=== PATIENT | female | born 1925 | race Caucasian/White ===

== ENCOUNTER 2017-03-23 18:46 | Observation (INO) | payer OTHER ==
[~2017-03-23] VITALS: Ht 162.6 cm; Wt 46.0 kg
[~2017-03-23 18:46] MED LIST: AMLO1POW3 PO; ASPI81TA3 PO; METO-429 PO; OMEP40CA6 PO; PRAV40TA76 PO
[2017-03-23] MEDS ORDERED: ASPIRIN 81 MG TAB PO STA (19:22)
[2017-03-23 19:30] VITALS: TEMP 98
[2017-03-23 20:00] LABS: BASOPHIL # 0.1 10^3/ul (0.0-0.1); BASOPHILS % 0.7 % (0.0-2.0); EOSINOPHILS # 0.1 10^3/ul (0.0-0.5); EOSINOPHILS % 1.6 % (0.0-7.0); HEMATOCRIT 38.8 % (37.0-47.0); HEMOGLOBIN 12.8 g/dl (12.0-16.0); LYMPHOCYTES # 2.5 10^3/ul (0.8-2.9); LYMPHOCYTES % 33.4 % (15.0-51.0); MEAN CORPUSCULAR HEMOGLOBIN 27.5 pg (29.0-33.0); MEAN CORPUSCULAR VOLUME 83.3 fl (82.0-101.0); MEAN PLATELET VOLUME 10.4 fl (7.4-10.4); MONOCYTE # 0.5 10^3/ul (0.3-0.9); MONOCYTES % 6.9 % (0.0-11.0); NEUTROPHIL # 4.2 10^3/ul (1.6-7.5); PLATELET COUNT 246 10^3/UL (140-415); RED BLOOD COUNT 4.66 10^6/ul (4.20-5.40); RED CELL DISTRIBUTION WIDTH 14.2 % (11.5-14.5); WHITE BLOOD COUNT 7.4 10^3/ul (4.8-10.8)
[2017-03-23 20:15] LABS: INR 1.1; PROTIME 14.2 Sec (12.2-14.2); PT RATIO 1.1
[2017-03-23 20:16] LABS: PARTIAL THROMBOPLASTIN TIME 30.7 Sec (25.0-35.0)
[2017-03-23 20:18] LABS: ANION GAP 15 (8-16); BLOOD UREA NITROGEN 28 mg/dl (7-20); CALCIUM 9.7 mg/dl (8.4-10.2); CARBON DIOXIDE 26 mmol/L (21-31); CHLORIDE 104 mmol/L (97-110); CREATININE 1.03 mg/dl (0.44-1.00); GLUCOSE 98 mg/dl (70-220); SODIUM 141 mmol/L (135-144)
[2017-03-23 20:31] LABS: TROPONIN-I < 0.012 ng/ml (0.00-0.12)
[2017-03-23] MEDS ORDERED: ENALAPRILAT 1.25 MG INJ IV ONE (21:00)
[2017-03-23] MEDS ORDERED: LABETALOL HCL 20MG INJ IV ONE (21:00)
--- NOTE | 2017-03-23 21:14 | RADRPT ---
PROCEDURE: XR Chest. CLINICAL INDICATION: Chest Pain. TECHNIQUE: Frontal chest x-ray was obtained. COMPARISON: Chest x-ray February 05, 2013 FINDINGS: Heart is not enlarged. Mediastinum is not widened. No hilar masses seen. Lungs are clear of any infi ltrates. There is no effusion or pneumothorax. IMPRESSION: No evidence for active cardiopulmonary disease. .Jose Hilliard MD, MD Date Time Electronically viewed and signed by .Jose Hilliard MD, on 03/23/2017 21:14 .A/
[2017-03-23] MEDS ORDERED: SOD CHLORIDE 0.9% 1,000 ML IV SCH (22:00)
[2017-03-23] MEDS ORDERED: ONDANSETRON 4 MG TAB PO PRN (22:00)
[2017-03-23] MEDS ORDERED: ACETAMINOPHEN 325 MG TAB PO PRN ×2 (22:00)
[2017-03-23] MEDS ORDERED: METOPROLOL 50 MG TAB PO ONE (22:00)
[2017-03-23] MEDS ORDERED: NITROGLYCERIN (SL) 0.4 MG TAB SL PRN (22:00)
[2017-03-23] MEDS ORDERED: ONDANSETRON 4 MG INJ IV PRN (22:00)
[2017-03-23] MEDS ORDERED: IBUP800T25 PO (23:15)
[2017-03-23 23:44] VITALS: Ht 162.6 cm; Wt 46.0 kg
[2017-03-24] VITALS (11 sets, daily range): BP systolic 109–197; BP diastolic 58–85; PULSE 58–70; RESP 17–18
--- NOTE | 2017-03-24 00:17 | ERD ---
ER Documentation Chief Complaint Chief Complaint Chest pain, SOB, Dizziness x 3 days HPI 89-year-old female presenting with chest pain. She has a history of hypertension. She states that she has had intermittent shortness of breath and chest pain for several months, however today her chest pain was much more severe , radiating to her left arm associated with shortness of breath and dizziness. She has been feeling worse over the past 3 days. She denies any nausea or vomiting. No fever, chills, abdominal pain, cough, dysuria. No focal weakness or numbness. ROS All systems reviewed and are negative except as per history of present illness. Medications Home Meds Reported Medications Ibuprofen* (Ibuprofen*) 800 Mg Tab, 800 MG PO Q6H Y for PAIN, TAB 03/23/17 Metoprolol Tartrate (LOPRESSOR) 50 Mg Tab, MG PO BID 02/05/13 Discontinued Reported Medications Pravastatin Sodium* (Pravastatin Sodium*) 40 Mg Tablet, 40 MG PO DAILY 02/05/13 Aspirin (Aspirin) 81 Mg Chew, 81 MG PO DAILY 02/05/13 Omeprazole* (Omeprazole*) 40 Mg Capsule.dr, 20 MG PO DAILY 02/05/13 Amlodipine Besylate (AMLODIPINE BESYLATE) 1 Gm Powder, 2.5 MG PO DAILY 02/05/13 Allergies Allergies: Coded Allergies: No Known Drug Allergies (Unverified Allergy, Unknown, 03/23/17) PMhx/Soc Medical and Surgical Hx: pt denies Surgical Hx History of Surgery: No Anesthesia Reaction: No Hx Neurological Disorder: No Hx Respiratory Disorders: No Hx Cardiac Disorders: Yes (HTN) Hx Psychiatric Problems: No Hx Miscellaneous Medical Probl: No Hx Alcohol Use: No Hx Substance Use: No Hx Tobacco Use: No Smoking Status: Never smoker FmHx Family History: No diabetes Physical Exam Vitals Vital Signs Date Time Temp Pulse Resp B/P Pulse Ox O2 Delivery O2 Flow Rate FiO2 03/23/17 21:30 67 16 161/67 97 Room Air 03/23/17 20:30 67 13 199/75 99 Room Air 03/23/17 19:30 98.0 73 16 199/75 99 Room Air 03/23/17 18:55 98.0 66 20 228/92 98 Physical Exam Const: Well-appearing, no apparent distress. Head: Atraumatic Eyes: Normal Conjunctiva ENT: Normal External Ears, Nose and Mouth. Neck: Full range of motion..~ No meningismus. Resp: Clear to auscultation bilaterally Cardio: Regular rate and rhythm, no murmurs. 2+ distal pulses in all 4 extremities Abd: Soft, non tender, non distended. Normal bowel sounds Skin: No petechiae or rashes Back: No midline or flank tenderness Ext: No cyanosis, or edema Neur: Awake and alert, oriented 3, cranial nerves intact, strength and sensations intact in all 4 extremities. Normal gait. Psych: Normal Mood and Affect Result Diagram: 03/23/17193603/23/171936 Results 24 hrs Laboratory Tests Test 03/23/17 19:37 White Blood Count 7.410^3/ul Red Blood Count 4.6610^6/ul Hemoglobin 12.8g/dl Hematocrit 38.8% Mean Corpuscular Volume 83.3fl Mean Corpuscular Hemoglobin 27.5pg Mean Corpuscular Hemoglobin Concent 33.0g/dl Red Cell Distribution Width 14.2% Platelet Count 37018^3/UL Mean Platelet Volume 10.4fl Neutrophils % 57.0% Lymphocytes % 33.4% Monocytes % 6.9% Eosinophils % 1.6% Basophils % 0.7% Nucleated Red Blood Cells % 0.0/100WBC Neutrophils # 4.210^3/ul Lymphocytes # 2.510^3/ul Monocytes # 0.510^3/ul Eosinophils # 0.110^3/ul Basophils # 0.110^3/ul Nucleated Red Blood Cells # 0.010^3/ul Prothrombin Time 14.2Sec Prothrombin Time Ratio 1.1 INR International Normalized Ratio 1.10 Activated Partial Thromboplast Time 30.7Sec Sodium Level 141mmol/L Potassium Level 4.0mmol/L Chloride Level 104mmol/L Carbon Dioxide Level 26mmol/L Anion Gap 15 Blood Urea Nitrogen 28mg/dl Creatinine 1.03mg/dl Glucose Level 98mg/dl Calcium Level 9.7mg/dl Troponin I < 0.012ng/ml Current Medications Medications (Trade) Dose Ordered Sig/Pablo Route PRN Reason Start Time Stop Time Status Last Admin Dose Admin Aspirin (Aspirin) 162 mg ONCE STAT PO 03/23/17 19:22 03/23/17 19:23 DC 03/23/17 19:50 Labetalol HCl (Labetalol) 10 mg ONCE ONCE IV 03/23/17 21:00 03/23/17 21:00 DC Enalaprilat (Vasotec Iv) 0.625 mg ONCE ONCE IV 03/23/17 21:00 03/23/17 21:01 DC 03/23/17 20:54 Procedures/[facility] EKG: Rate/Rhythm: Normal Sinus Rhythm QRS, ST, T-waves: Right bundle branch block, no changes consistent w/ acute ischemia Impression: No evidence of ischemia or arrhythmia Chest x-ray shows no acute abnormalities Labs CBC: no anemia or evidence of infection CMP: No evidence of electrolyte abnormality. elevated BUN and creatinine Troponin within normal limits [facility] Patient is presenting with chest pain and uncontrolled hypertension. Differential includes hypertensive urgency versus emergency, acute coronary syndrome, pulmonary embolism, aortic dissection. Her blood pressure was treated with enalaprilat IV with improvement. Initial troponin and EKG did not show evidence of ischemia. I have a low suspicion for dissection or PE. I spoke with Dr. Hilario, the chief deputy coroner on-call, who reviewed her EKG and was not concerned about ischemia. Patient's symptoms are however concerning for cardiac cause will require inpatient workup and continuous monitoring. Further w/u for ischemia, arrhythmia, PE or dissection will be deferred to the inpatient team. Accepting Care Team: Current data and ongoing care discussed. Time: Time of admission Primary Provider: Rasheeda Consulting: Yanelis Departure Diagnosis: Primary Impression: Chest pain Chest pain type: unspecified Qualified Code: R07.9 - Chest pain, unspecified type Additional Impressions: Prerenal azotemia Hypertensive urgency Condition: Fair ADÁN RODRIGUEZ MD Mar 24, 2017 00:17
[2017-03-24] MEDS ORDERED: LISINOPRIL 10 MG TAB ONE (00:33)
[2017-03-24] MEDS: LISINOPRIL 10 MG TAB PO SCH ×2 (00:42→08:42)
[2017-03-24 01:43] LABS: CREATINE KINASE 54 IU/L (23-200)
[2017-03-24 02:00] LABS: TROPONIN-I < 0.012 ng/ml (0.00-0.12)
[2017-03-24] MEDS: hydrALAzine 20 MG INJ IV PRN (06:24)
[2017-03-24 07:50] LABS: ALBUMIN 3.3 g/dl (3.3-4.9); BILIRUBIN,INDIRECT 0.4 mg/dl (0-1.1); BILIRUBIN,TOTAL 0.4 mg/dl (0.2-1.3); CHOL/HDL RATIO 2.4 RATIO; TOTAL PROTEIN 6.1 g/dl (6.1-8.1)
[2017-03-24 08:16] LABS: CALCIUM 9.1 mg/dl (8.4-10.2); CREATININE 0.8 mg/dl (0.44-1.00); POTASSIUM 4.5 mmol/L (3.5-5.1)
[2017-03-24] MEDS: ASPIRIN (EC) 81 MG TAB PO SCH (08:43)
[2017-03-24] MEDS: METOPROLOL 50 MG TAB PO SCH ×2 (08:43→20:56)
[2017-03-24 09:04] LABS: CREATINE KINASE 42 IU/L (23-200)
[2017-03-24 09:14] LABS: CK-MB 1.74 ng/ml (0.0-2.4)
[2017-03-24 09:17] LABS: TROPONIN-I < 0.012 ng/ml (0.00-0.12)
--- NOTE | 2017-03-24 14:54 | HP ---
Date/Time of Note Date/Time of Note DATE: 03/24/17 TIME: 14:21 Assessment/Plan VTE Prophylaxis VTE Prophylaxis Intervention: SCD's Lines/Catheters IV Catheter Type (from Nrs): Saline Lock Assessment/Plan Assessment/Plan 89-year-old female with; 1. Left-sided chest pain/chest pressure, status post fall and chest wall trauma 1 month ago, kind of reproducible pain, seems to be atypical. Cardiac enzymes negative 5 Chest x-ray within normal EKG repeated twice shows sinus rhythm with right bundle branch block which is probably old Blood pressure seems to be better control as of this morning, bradycardia seems to be resolved so far 2D echocardiogram ordered. Continue aspirin We will monitor overnight with discharge planning in a.m. 2. Hypertension, status post hypertensive urgency: Continue current regimen, she is kept on her Lopressor, lisinopril has been added. 3. Osteoarthritis: Continue Tylenol as needed Prophylaxis: SCDs for DVT prophylaxis, Pepcid for GI prophylaxis Disposition: Will monitor overnight, discharge planning for tomorrow morning if blood pressure stable and no severe bradycardia. HPI/ROS Admit Date/Time Admit Date/Time Mar 23, 2017 at 21:41 Hx of Present Illness Chief complaint: Chest pain, hypertension History of presenting illness: This is a 89-year-old female with history of hypertension, status post fall one month ago with chest trauma, she actually had bruising back then, she was given ibuprofen for pain control, she was also found to be a severely hypertensive and started on Lopressor by her primary care physician a month ago, patient reports that yesterday she was having pressure-like pain on her left side therefore she came to the emergency department. Patient was found to be severely hypertensive with SBP of 228. She was given medications overnight she did have episodes of bradycardia with heart rate in the 40s. She is back on her outpatient Lopressor, so far heart rate has been stable, she has been started on lisinopril, systolic blood pressure has been running in the 130s. Patient denies any chest pressure currently. Yesterday while having the chest pressure and the hypertension, the patient denies any shortness of breath, nausea, vomiting, diaphoresis. She denies any cough, fevers, gastrointestinal or genitourinary complaints. She reports that 10 years ago, she had a procedure that she describes as an angiogram and likely with angioplasty but no stent placement. Not much of a cardiac workup since then. Her enzymes have been negative so far. 2D echocardiogram has been done and reading pending. EKG remains stable sinus rhythm, only showing a right bundle branch block. On exam, her left-sided chest pain/pressure is actually reproducible with palpation. ROS Constitutional: no complaints Eyes: no complaints ENT: no complaints Respiratory: no complaints Cardiovascular: chest pain (Reproducible) Gastrointestinal: no complaints Genitourinary: no complaints Musculoskeletal: no complaints Skin: no complaints Neurologic: no complaints Endocrine: no complaints Lymphatic: no complaints Psychological: no complaints Immunologic: no complaints PMH/Family/Social Past Medical History Hypertension Osteoarthritis Varicose vein Status post fall 1 month ago with chest wall trauma Past Surgical History Status post angiogram/angioplasty 10 years ago per patient's description Family History Significant Family History: no pertinent family hx Social History Alcohol Use: none Smoking Status: Never smoker Drug Use: none Exam/Review of Systems Vital Signs Vitals Vital Signs Date Time Temp Pulse Resp B/P Pulse Ox O2 Delivery O2 Flow Rate FiO2 03/24/17 12:10 66 03/24/17 11:58 98.1 17 137/69 98 03/23/17 22:00 Room Air Intake and Output 03/23/17 03/23/17 03/24/17 14:59 22:59 06:59 Intake Total 600 ml Balance 600 ml Exam Constitutional: alert, oriented, other (Appears younger than her age), well developed Respiratory: clear to auscultation, normal air movement Cardiovascular: nl pulses, other (Reproducible left-sided chest pain/pressure on palpation), regular rate and rhythm Gastrointestinal: non-tender, soft Musculoskeletal: nl extremities to inspection Extremities: normal pulses Neurological: [employer] II-XII intact, nl mental status, nl speech, nl strength Labs Result Diagram: 03/23/17193603/24/17 0620 Medications Medications Current Medications Metoprolol Tartrate (Lopressor) 50 mg BID PO Last administered on 03/24/17 08 :43; Admin Dose 50 MG; Start 03/24/17 at 09:00 Ondansetron HCl (Zofran Tab) 4 mg Q4 PRN PO NAUSEA AND/OR VOMITING; Start at 22:00 Acetaminophen (Tylenol Tab) 650 mg Q6 PRN PO FEVER Last administered on 13:23; Admin Dose 650 MG; Start 03/23/17 at 22:00 Nitroglycerin (Nitroglycerin (Sl Tab) 0.4 Mg) 1 tab [id number] PRN SL chest pain ; Start 03/23/17 at 22:00 Aspirin (Halfprin) 81 mg DAILY PO Last administered on 03/24/17 08:43; Admin Dose 81 MG; Start 03/24/17 at 09:00 Lisinopril (Zestril) 10 mg DAILY PO Last administered on 03/24/17 08:42; Admin Dose 10 MG; Start 03/24/17 at 09:00 Hydralazine HCl (Apresoline) 10 mg Q6H PRN IV ELEVATED SYSTOLIC BP Last administered on 03/24/17 06:24; Admin Dose 10 MG; Start 03/24/17 at 05:30 Procedures Procedures PROCEDURE: XR Chest. CLINICAL INDICATION: Chest Pain. TECHNIQUE: Frontal chest x-ray was obtained. COMPARISON: Chest x-ray February 05, 2013 FINDINGS: Heart is not enlarged. Mediastinum is not widened. No hilar masses seen. Lungs are clear of any infiltrates. There is no effusion or pneumothorax. IMPRESSION: No evidence for active cardiopulmonary disease. .Jose Hilliard MD, MD Date Time Electronically viewed and signed by .Jose Hilliard MD, MD on 03/23/2017 21: 14 .A/ EKG: Sinus rhythm with right bundle branch block, old. DUANE ROMAN Mar 24, 2017 14:32
[2017-03-24] MEDS: FAMOTIDINE 20 MG TAB PO SCH (16:32)
[2017-03-24] MEDS ORDERED: FAMOTIDINE 20 MG TAB PO SCH (21:00)
[2017-03-25] VITALS (9 sets, daily range): BP systolic 120–184; BP diastolic 58–79; PULSE 60–85; RESP 18–20
[2017-03-25] MEDS: hydrALAzine 20 MG INJ IV PRN ×2 (00:33→15:46)
--- NOTE | 2017-03-25 07:39 | RADRPT ---
Echocardiogram Report Patient Name: SIVAN BRAGG Gender: Female Date: 1925 Study Date: 24-Mar-2017 Internal Control Consultant: Ximena [facility] Location: 520-A Ref. Physician: MARY ROMAN Quality: Adequate Procedures: Transthoracic echocardiogram with complete 2D, M-Mode, and doppler examination. Indications: Hypertensive urgency, eval ef. 2D/M Mode Doppler Measurement Value Normal Ranges Measurement Value Normal Ranges LVIDd 2D 4.0 3.5 - 5.6 cm AV Peak Adryan 1.1 m/sec LVIDs 2D 2.6 2.1 - 4.1 cm AV Peak PG 4.4 mmHg LVPWd 2D 1.0 0.6 - 1.1 cm LVOT Peak Adryan 0.9 m/sec IVSd 2D 1.5 0.6 - 1.1 cm LVOT Peak PG 3.1 mmHg AoR Diam 2D 2.6 2.0 - 3.7 cm MV E Peak Adryan 1.1 m/sec EDV 2D 69.4 cm3 MV A Peak Adryan 0.8 m/sec ESV 2D 17.5 cm3 MV E/A 1.4 LA Dimen 2D 4.5 2.3 - 4.0 cm MV Decel Time 193 msec MV Decel [facility] 6 MV E/A 1.4 TR Peak Adryan 2.7 m/sec TR Peak PG 30.1 mmHg RVSP 33.0 mmHg Findings Left Ventricle: Normal left ventricular systolic function. Normal left ventricular cavity size. Sigmoid septum. Ejection fraction is visually estimated at 60 %. Abnormal Diastolic Function. Right Ventricle: Normal right ventricular size. Normal right ventricular systolic function. Left Atrium: There is moderate enlargement of left atrium. Right Atrium: The right atrium is normal in size. Mitral Valve: Mild mitral leaflet calcification. Mild mitral annular calcification. Mild mitral valve regurgitation. Aortic Valve: No significant aortic stenosis. Aortic cusps appear mildly calcified. Trace aortic valve regurgitation. Tricuspid Valve: Normal appearance of the tricuspid valve. Estimated peak PA systolic pressure 33 mmHg. There is mild tricuspid regurgitation. Pulmonic Valve: Pulmonic valve not well visualized. There is trace pulmonic regurgitation. Pericardium: Normal pericardium with no significant pericardial effusion. Aorta: Normal aortic root. IVC: Normal size and normal respiratory collapse consistent with normal right atrial pressure. Conclusions 1.Normal left ventricular systolic function. Normal left ventricular cavity size. Sigmoid septum. Ejection fraction is visually estimated at 60 %. Abnormal Diastolic Function. 2.Mild mitral leaflet calcification. Mild mitral annular calcification. Mild mitral valve regurgitation. 3.No significant aortic stenosis. Aortic cusps appear mildly calcified. Trace aortic valve regurgitation. 4.Normal appearance of the tricuspid valve. Estimated peak PA systolic pressure 33 mmHg. There is mild tricuspid regurgitation. 5.Pulmonic valve not well visualized. There is trace pulmonic regurgitation. 6.Normal pericardium with no significant pericardial effusion. Electronically Signed By: Cordell Ramirez 25-Mar-2017 07:38:43 -0800 Patient Name: SIVAN BRAGG Study Date: 24-Mar-2017 [id number]
[2017-03-25 08:30] LABS: CALCIUM 9.4 mg/dl (8.4-10.2); CREATININE 0.82 mg/dl (0.44-1.00); POTASSIUM 4.2 mmol/L (3.5-5.1)
[2017-03-25] MEDS: ASPIRIN (EC) 81 MG TAB PO SCH (08:37)
[2017-03-25] MEDS: LISINOPRIL 10 MG TAB PO SCH (08:38)
[2017-03-25] MEDS: METOPROLOL 50 MG TAB PO SCH (08:38)
[2017-03-25] MEDS: FAMOTIDINE 20 MG TAB PO SCH (08:38)
[2017-03-25 08:40] LABS: MAGNESIUM 1.9 mg/dl (1.7-2.5); PHOSPHORUS 3.9 mg/dl (2.5-4.9)
--- NOTE | 2017-03-25 10:39 | PN ---
Date/Time of Note Date/Time of Note DATE: 03/25/17 TIME: 10:35 Assessment/Plan VTE Prophylaxis VTE Prophylaxis Intervention: SCD's Lines/Catheters IV Catheter Type (from Nrs): Saline Lock Urinary Cath still in place: No Assessment/Plan Assessment/Plan 89-year-old female with; 1. Left-sided chest pain/chest pressure, status post fall and chest wall trauma 1 month ago, kind of reproducible pain, seems to be atypical. Cardiac enzymes negative 5 Chest x-ray within normal EKG repeated twice shows sinus rhythm with right bundle branch block which is probably old Blood pressure seems to be better control as of this morning, bradycardia resolved and has been tolerating Lopressor actually over the past 24 hours, 2D echocardiogram within normal limits Continue aspirin and plan to discharge home today with outpatient follow-up with PCP. 2. Hypertension, status post hypertensive urgency: Continue current regimen, she is kept on her Lopressor, lisinopril has been added and will be increased to twice daily. 3. Osteoarthritis: Patient reports that Tylenol does not work, now she is going to be on a baby aspirin therefore will give tramadol as needed for severe pain in order to avoid high doses of ibuprofen. Prophylaxis: SCDs for DVT prophylaxis, Pepcid for GI prophylaxis Disposition: Discharge home today with outpatient follow-up with primary care physician. Referral to cardiology outpatient as needed. Subjective 24 Hr Interval Summary Free Text/Dictation Patient doing well today, no pain reported except for her knee pain and osteoarthritis. She did have a systolic blood pressure up to 180 last night, she will need some coverage at night, therefore her lisinopril will be increased to twice daily dosing, will discharge her later this afternoon. Exam/Review of Systems Vital Signs Vitals Vital Signs Date Time Temp Pulse Resp B/P Pulse Ox O2 Delivery O2 Flow Rate FiO2 03/25/17 08:00 81 03/25/17 07:54 98.1 20 127/61 99 03/23/17 22:00 Room Air Intake and Output 03/24/17 03/24/17 03/25/17 15:00 23:00 07:00 Intake Total 450 ml 300 ml Balance 450 ml 300 ml Exam Constitutional: alert, oriented, well developed Respiratory: clear to auscultation, normal air movement Cardiovascular: nl pulses, regular rate and rhythm Gastrointestinal: non-tender, soft Musculoskeletal: nl extremities to inspection, nl gait and stance (Limited by knee pain) Extremities: normal pulses, other (No edema, clubbing or cyanosis) Neurological: CASING MAN II-XII intact, nl mental status, nl speech, nl strength ( Limited by knee pain) Results Result Diagram: 03/23/17 1937 03/25/17 0657 Results 24 hrs Laboratory Tests Test 03/24/17 12:17 03/25/17 06:57 Troponin I < 0.012 Sodium Level 141 Potassium Level 4.2 Chloride Level 109 Carbon Dioxide Level 24 Anion Gap 12 Blood Urea Nitrogen 26 H Creatinine 0.82 Glucose Level 100 Calcium Level 9.4 Phosphorus Level 3.9 Magnesium Level 1.9 Medications Medications Current Medications Metoprolol Tartrate (Lopressor) 50 mg BID PO Last administered on 03/25/17 08 :38; Admin Dose 50 MG; Start 03/24/17 at 09:00 Ondansetron HCl (Zofran Tab) 4 mg Q4 PRN PO NAUSEA AND/OR VOMITING; Start at 22:00 Acetaminophen (Tylenol Tab) 650 mg Q6 PRN PO FEVER Last administered on 13:23; Admin Dose 650 MG; Start 03/23/17 at 22:00 Nitroglycerin (Nitroglycerin (Sl Tab) 0.4 Mg) 1 tab [id number] PRN SL chest pain ; Start 03/23/17 at 22:00 Aspirin (Halfprin) 81 mg DAILY PO Last administered on 03/25/17 08:37; Admin Dose 81 MG; Start 03/24/17 at 09:00 Hydralazine HCl (Apresoline) 10 mg Q6H PRN IV SBP>160 Last administered on 00:33; Admin Dose 10 MG; Start 03/24/17 at 05:30 Famotidine (Pepcid) 20 mg DAILY PO Last administered on 03/25/17 08:38; Admin Dose 20 MG; Start 03/24/17 at 15:30 Lisinopril (Zestril) 10 mg BID PO ; Start 03/25/17 at 21:00 Procedures Procedures Echocardiogram Report Patient Name: SIVAN BRAGG Gender: Female Date: 1925 Study Date: 24-Mar-2017 Career Guidance Counselor: Ximena [facility] Location: [address] Ref. Physician: MARY ROMAN Quality: Adequate Procedures: Transthoracic echocardiogram with complete 2D, M-Mode, and doppler examination. Indications: Hypertensive urgency, eval ef. 2D/M Mode Doppler Measurement Value Normal Ranges Measurement Value Normal Ranges LVIDd 2D 4.0 3.5 - 5.6 cm AV Peak Adryan 1.1 m/sec LVIDs 2D 2.6 2.1 - 4.1 cm AV Peak PG 4.4 mmHg LVPWd 2D 1.0 0.6 - 1.1 cm LVOT Peak Adryan 0.9 m/sec IVSd 2D 1.5 0.6 - 1.1 cm LVOT Peak PG 3.1 mmHg AoR Diam 2D 2.6 2.0 - 3.7 cm MV E Peak Adryan 1.1 m/sec EDV 2D 69.4 cm3 MV A Peak Adryan 0.8 m/sec ESV 2D 17.5 cm3 MV E/A 1.4 LA Dimen 2D 4.5 2.3 - 4.0 cm MV Decel Time 193 msec MV Decel [facility] 6 MV E/A 1.4 TR Peak Adryan 2.7 m/sec TR Peak PG 30.1 mmHg RVSP 33.0 mmHg Findings Left Ventricle: Normal left ventricular systolic function. Normal left ventricular cavity size. Sigmoid septum. Ejection fraction is visually estimated at 60 %. Abnormal Diastolic Function. Right Ventricle: Normal right ventricular size. Normal right ventricular systolic function. Left Atrium: There is moderate enlargement of left atrium. Right Atrium: The right atrium is normal in size. Mitral Valve: Mild mitral leaflet calcification. Mild mitral annular calcification. Mild mitral valve regurgitation. Aortic Valve: No significant aortic stenosis. Aortic cusps appear mildly calcified. Trace aortic valve regurgitation. Tricuspid Valve: Normal appearance of the tricuspid valve. Estimated peak PA systolic pressure 33 mmHg. There is mild tricuspid regurgitation. Pulmonic Valve: Pulmonic valve not well visualized. There is trace pulmonic regurgitation. Pericardium: Normal pericardium with no significant pericardial effusion. Aorta: Normal aortic root. IVC: Normal size and normal respiratory collapse consistent with normal right atrial pressure. Conclusions 1. Normal left ventricular systolic function. Normal left ventricular cavity size. Sigmoid septum. Ejection fraction is visually estimated at 60 %. Abnormal Diastolic Function. 2. Mild mitral leaflet calcification. Mild mitral annular calcification. Mild mitral valve regurgitation. 3. No significant aortic stenosis. Aortic cusps appear mildly calcified. Trace aortic valve regurgitation. 4. Normal appearance of the tricuspid valve. Estimated peak PA systolic pressure 33 mmHg. There is mild tricuspid regurgitation. 5. Pulmonic valve not well visualized. There is trace pulmonic regurgitation. 6. Normal pericardium with no significant pericardial effusion. Electronically Signed By: Cordell Ramirez 25-Mar-2017 07:38:43 -0800 DUANE ROMAN Mar 25, 2017 10:39
--- NOTE | 2017-03-25 10:40 | PDOCDIS ---
Discharge Instructions CONDITION Patient Condition: Stable HOME CARE INSTRUCTIONS: Special Diet: low cholesterol,low fat, 2GmNa ACTIVITY: Activity Restrictions: Slowly Increase Activity FOLLOW UP/APPOINTMENTS Follow-up Plan Follow-up with primary care physician within 1 week Referral to outpatient cardiology as needed within 1-2 weeks DUANE ROMAN Mar 25, 2017 10:40
[2017-03-25] MEDS ORDERED: METO-429 PO (10:43)
[2017-03-25] MEDS ORDERED: TRAM50TA2 PO (10:43)
[2017-03-25] MEDS ORDERED: ASPI-664 PO (10:43)
[2017-03-25] MEDS ORDERED: LISI10TA2 PO (10:43)
--- NOTE | 2017-03-25 13:22 | RADRPT ---
Vent Rate: 76 bpm RR Interval: 0 msec AL Interval: 162 msec QRS Duration: 134 msec QT Interval: 422 msec QTC Interval: 474 msec P-R-T [place]: 57 - 73 - 40 degrees Normal sinus rhythm Right bundle branch block Abnormal ECG Electronically Signed By: Troy Orozco [id number]
[2017-03-25] MEDS ORDERED: LISINOPRIL 10 MG TAB PO SCH (21:00)
== END 2017-03-25 17:24 | disposition home health service (06) ==
LOC: E/R 18:46 → TEL 21:41
PROVIDERS: ADMIT Internal Medicine; ATTEND Internal Medicine
DX: R07.89 Other chest pain (principal); I16.0 Hypertensive urgency; I10 Essential (primary) hypertension; M19.90 Unspecified osteoarthritis, unspecified site; Z79.82 Long term (current) use of aspirin
CPT/HCPCS: 36415; 71010; 80048; 80061; 80076; 82550; 82553; 83735; 84100; 84439; 84443; 84484; 85025; 85610; 85730; 93005; 93306; 96374; 99285; G0378; J0360; J7030